=== PATIENT | female | born 1980 | race Caucasian/White ===

== ENCOUNTER 2018-12-15 17:21 | Emergency (ER) | payer OTHER ==
[~2018-12-15] VITALS: Ht 170.2 cm; Wt 100.5 kg
[2018-12-15] MEDS ORDERED: HYDR-3363 PO (17:45)
[2018-12-15] MEDS ORDERED: BREO1INH PO (17:45)
[2018-12-15] MEDS ORDERED: ALBU83IN NEB (17:45)
[2018-12-15] MEDS ORDERED: NAPR-885 PO (17:45)
[2018-12-15] MEDS ORDERED: MONT10TA2 PO (17:45)
[2018-12-15] MEDS ORDERED: TROS20TA3 PO (17:45)
[2018-12-15] MEDS ORDERED: OMEP-221 PO (17:45)
[2018-12-15] MEDS ORDERED: ASPE16CR TOP (17:45)
[2018-12-15] MEDS ORDERED: VENTAER INH (17:45)
[2018-12-15] MEDS ORDERED: ALL10TAB28 PO (17:45)
[2018-12-15] MEDS ORDERED: EPIP0.3I2 IM (17:45)
--- NOTE | 2018-12-15 17:58 | REP ---
Chest one-view HISTORY: Chest pain Comparison: 03/23/2015 The lungs are clear. The heart is normal in size. The pulmonary vasculature is normal in appearance. Impression: No acute disease. Electronically Signed by Hernandez Carlos MD 12/15/2018 05:51 P
[2018-12-15 18:45] LABS: BASO % 0.4 % (0.0-1.0); EOS # 0.4 10^3/uL (0.0-0.50); EOS % 4.8 % (0.0-3.0); HEMATOCRIT 39.7 % (36.0-47.0); HEMOGLOBIN 13.3 g/dl (12.0-15.5); LYMPH # 2.1 10^3/uL (1.5-4.5); LYMPH % 25.9 % (24.0-44.0); MEAN CORPUSCULAR HEMOGLOBIN 29.4 pg (27.0-33.0); MEAN CORPUSCULAR HGB CONC 33.5 g/dl (32.0-36.5); MEAN CORPUSCULAR VOLUME 87.6 fl (80.0-96.0); MONO # 0.5 10^3/uL (0.0-0.8); MONO % 6.2 % (0.0-5.0); NEUTROPHILS % 62.5 % (36.0-66.0); PLATELET COUNT, AUTOMATED 383 10^3/uL (150-450); RED BLOOD COUNT 4.53 10^6/uL (4.00-5.40); WHITE BLOOD COUNT 8.1 10^3/uL (4.0-10.0)
[2018-12-15 19:03] LABS: INFLUENZA A AMPLIFICATION NEGATIVE (NEGATIVE); INFLUENZA B AMPLIFICATION NEGATIVE (NEGATIVE)
[2018-12-15 19:12] LABS: ALT/SGPT 19 U/L (12-78); BILIRUBIN,DIRECT 0.2 MG/DL (0.0-0.2); BILIRUBIN,TOTAL 0.8 MG/DL (0.2-1.0); BLOOD UREA NITROGEN 14 MG/DL (7-18); CARBON DIOXIDE LEVEL 28 MEQ/L (21-32); CHLORIDE LEVEL 109 MEQ/L (98-107); CK-MB VALUE MASS < 1.0 NG/ML (<3.6); CPK CREATINE PHOSPHOKINASE 78 U/L (26-192); CREATININE FOR GFR 0.66 MG/DL (0.55-1.30); GLOMERULAR FILTRATION RATE > 60.0 (>60); GLUCOSE, FASTING 94 MG/DL (70-100); LIPASE 161 U/L (73-393); MB/CK RELATIVE INDEX 1.28 (< OR =4); NT-PRO BNP 33 PG/ML (<125); SODIUM LEVEL 140 MEQ/L (136-145); TOTAL PROTEIN 7.1 GM/DL (6.4-8.2); TROPONIN I < 0.02 NG/ML (< 0.10)
[2018-12-15] MEDS ORDERED: GI COCKTAIL 50ML BTL(HYOSCYAMINE/MAALOX/LIDOCAINE VISCOUS)(1:3:1) PO ONE (20:00)
[2018-12-15] MEDS ORDERED: SUCR1TA PO (20:19)
[2018-12-15 20:25] VITALS: BP 123/78
--- NOTE | 2018-12-16 14:44 | ECGEPIP ---
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
== END 2018-12-15 20:30 | disposition home or self-care (01) ==
LOC: M ED 17:21
DX: R07.89 Other chest pain (principal); K21.9 Gastro-esophageal reflux disease without esophagitis; J45.909 Unspecified asthma, uncomplicated; Z79.899 Other long term (current) drug therapy; Z88.0 Allergy status to penicillin; Z88.1 Allergy status to other antibiotic agents; Z88.8 Allergy status to other drugs, medicaments and biological substances